=== PATIENT | female | born 1980 | race Caucasian/White ===

== ENCOUNTER 2024-02-21 12:41 | Observation (INO) | payer SELFPAY ==
[2024-02-21] VITALS (9 sets, daily range): BP systolic 86–127; BP diastolic 46–72; PULSE 57–60; RESP 16–18; TEMP 36.4–36.7; O2SAT 98–100; BMI 21.1
--- NOTE | 2024-02-21 12:43 | ED_ITS ---
Discharge Plan Disposition Patient Disposition: Admitted Clinical Impressions Clinical Impression: Pancreatitis, acute Discharge ED Provider: Christopher Giron General Adult HPI General Chief complaint: Abdominal Pain Stated complaint: Abd pain, blood in stool Time Seen by Provider: 02/21/24 12:58 History of Present Illness HPI narrative: Unique Rios is a 43F with a history of marijuana use, hysterectomy, who presents to the emergency department for complaints of severe cramping abdominal pain as well as blood in her stool. Patient states that starting at 0300 this morning, she was awoken from sleep and had an episode of nonbloody diarrhea. She has had severe cramping lower abdominal pain since then. She is also had multiple episodes of loose, watery diarrhea since then and her abdominal pain is gotten worse. She reports a few streaks of bright red blood in her stools. She states that this is never happened before. She denies any alcohol use or additional recreational drug use. She does state that she vapes. She denies any vomiting or nausea. Related Data Allergies Allergy/AdvReac Type Severity Reaction Status Date / Time codeine Allergy Hives Verified 02/21/24 13:10 [facility] Disclaimer: The information contained in this section may have been updated after the patient was seen, as this information can be updated by other users. Social History Smoking Status: Current every day smoker alcohol intake: never current occupational status: other details: unknown Travel in the last 8 weeks: None ROS Obtained: Yes Systems reviewed as appropriate & no additional complaints except as documented Physical Exam General General appearance: alert Comment: Appears uncomfortable Head Head exam: atraumatic Eye Eye exam: Present normal appearance ENT ENT exam: Present normal external ear exam Neck Neck exam: Present full ROM Chest Chest inspection: Present symmetric chest wall rise Respiratory Respiratory exam: Present normal lung sounds bilaterally; Absent respiratory distress, wheezes or stridor Cardiovascular Cardiovascular exam: Present regular rate and normal rhythm Abdominal Exam Abdominal exam: Present soft, tenderness (epigastric) and guarding (epigastric); Absent distention or rigidity Abdominal tenderness: Present epigastrium Extremities Exam Extremities exam: Present normal inspection Back Exam Back exam: Present normal inspection Neurological Exam Neurological exam: Present alert and oriented X3 Psychiatric Psychiatric exam: Present normal affect Skin Skin exam: Present warm and dry Medical Decision Making Medical Records Medical records reviewed: Yes I reviewed the patient's medical records. Shahzad Inquiry Pt receiving controlled substance: No Vital Signs: 02/21/24 12:59 02/21/24 13:30 02/21/24 14:00 Temperature 97.8 F Temperature Source Oral Pulse Rate 59 L 60 Pulse Rate [Left] 58 L Respiratory Rate 18 Blood Pressure 103/56 L 86/55 L Blood Pressure [Right Arm] 100/64 L Blood Pressure Mean 71 61 Blood Pressure Mean [Right Arm] 76 Blood Pressure Source [Right Arm] Automatic Cuff Blood Pressure Position [Right Arm] Sitting 02 Sat by Pulse Oximetry 98 100 100 Oxygen Delivery Method Room Air Room Air Room Air 02/21/24 14:30 Temperature Temperature Source Pulse Rate 60 Pulse Rate [Left] Respiratory Rate Blood Pressure 96/59 L Blood Pressure [Right Arm] Blood Pressure Mean 68 Blood Pressure Mean [Right Arm] Blood Pressure Source [Right Arm] Blood Pressure Position [Right Arm] 02 Sat by Pulse Oximetry 100 Oxygen Delivery Method Room Air Lab Data Lab Results 02/21/24 12:51: Urine Color Yellow, Urine Appearance Clear, Urine pH 6.5, Ur Specific [place] 1.025, Urine Protein Negative, Urine Glucose (UA) Negative, Urine Ketones Negative, Urine Blood Negative, Urine Nitrate Positive, Urine Bilirubin Negative, Urine Urobilinogen 0.2, Ur Leukocyte Esterase Negative, Urine RBC 3-5, Urine WBC Occasional, Ur Squamous Epith Cells 5-10, Urine Bacteria 3+ 02/21/24 12:56: WBC 4.5 L, RBC 4.51, Hgb 13.8, Hct 43.5, MCV 96.3, MCH 30.6, M CHC 31.7 L, RDW 13.2, Plt Count 214, MPV 7.7, Neut % (Auto) 74.8, Lymph % (Auto) 18.1, [place] % (Auto) 5.8, Eos % (Auto) 0.9, Baso % (Auto) 0.5, Neut # (Auto) 3.4, Lymph # (Auto) 0.8, [place] # (Auto) 0.3, Eos # (Auto) 0.0, Baso # (Auto) 0.0, Sodium 137, Potassium 4.0, Chloride 106, Carbon Dioxide 27, Anion Gap 8.0, BUN 16, Creatinine 0.80, Estimated Creat Clear 72, Estimated GFR 79, Est GFR ( Amer) 96, Glucose 100, Calcium 9.0, Total Bilirubin 0.7, AST 38 H, ALT 22, Alkaline Phosphatase 58, Total Protein 7.3, Albumin 4.5, Globulin 2.8, Albumin/Globulin Ratio 1.6, Triglycerides 49, Lipase 673 H, Serum HCG, Qual Negative 02/21/24 12:56 02/21/24 12:56 Orders (Tests/Meds): ED MEDICATIONS Generic Name Dose Route Start Last Admin Trade Name Derrell PRN Reason Stop Dose Admin Hydrocodone Bitart/Acetaminophen 1 tab 02/21/24 14:58 Hydrocodone/Apap 5/325 Mg Tablet PO 03/22/24 14:57 Q4HP PRN Moderate to Severe Pain (4-10) Ceftriaxone Sodium 1 gm/ 50 mls @ 100 mls/hr 02/21/24 15:00 Sodium Chloride IV 03/02/24 14:59 Q24H CHANG Lactated Ringer's 1,000 mls @ 100 mls/hr 02/21/24 15:00 Lactated Ringer's 1000 Ml Bag IV 02/22/24 00:59 .Q10H CHANG Sodium Chloride 10 ml 02/21/24 13:23 02/21/24 13:23 Sodium Chloride 0.9% 10ml Syr (Rad Only) IV 03/22/24 13:22 10 ml NEEDED PRN Administration Maintain IV Site Discontinued Medications Generic Name Dose Route Start Last Admin Trade Name Derrell PRN Reason Stop Dose Admin Lactated Ringer's 1,000 mls @ 999 mls/hr 02/21/24 13:27 02/21/24 13:33 Lactated Ringer's 1000 Ml Bag IV 02/21/24 14:27 999 mls/hr .Q1H1M ONE Administration Iopamidol 75 ml 02/21/24 13:23 02/21/24 13:23 Iopamidol-370 (76%);100ml Bottle IV 02/21/24 13:24 75 ml ONCE ONE Administration Morphine Sulfate 4 mg 02/21/24 13:05 02/21/24 13:11 Morphine 4mg/Ml Syringe IV 02/21/24 13:06 4 mg ONCE ONE Administration ORDERS Category Date Time Status CT abdomen pelvis w con Stat Cat Scan 02/21/24 13:05 Completed US RUQ [US abdomen limited] Stat Exams 02/21/24 15:05 Taken CBC w/Auto Diff [Complete Blood Count Auto Diff] Stat Lab 02/21/24 12:56 Completed CMP [Comprehensive Metabolic Panel] Stat Lab 02/21/24 12:56 Completed Complete Blood Count Auto Diff AMLAB Lab 02/22/24 06:00 Ordered Comprehensive Metabolic Panel AMLAB Lab 02/22/24 06:00 Ordered Lipase AMLAB Lab 02/22/24 06:00 Ordered Lipase Stat Lab 02/21/24 12:56 Completed Magnesium AMLAB Lab 02/22/24 06:00 Ordered Serum [HCG Qualitative, Serum] Stat Lab 02/21/24 12:56 Completed Triglycerides Stat Lab 02/21/24 12:56 Completed Urinalysis and Microscopic Stat Lab 02/21/24 12:51 Completed Urine Culture Stat Micro 02/21/24 12:51 Received Medical Decision Narrative: Unique Rios is a 43F with a past medical history of marijuana use but no other significant past medical history who presents to the emergency department for complaints of abdominal pain and bloody stools. Patient states that she woke up at 0300 this morning with bloody stools and severe cramping abdominal pain. She states that it feels most prominent below her bellybutton. No dysuria or hematuria. She noted a few streaks of blood in her diarrhea this morning. She denies any history of alcohol use. She has had a history of a hysterectomy and C-sections in the past. Physical exam demonstrated an ill-appearing female with epigastric and suprapubic abdominal tenderness. She is nondistended. She has no rigidity on abdominal exam. Differential diagnosis includes: Pancreatitis, urinary tract infection, small bowel obstruction, diverticulitis, peptic ulcer disease, hemorrhoids, infectious colitis, inflammatory bowel disease. Workup in the emergency department included: CBC, CMP, lipase, test, urinalysis, CT abdomen pelvis with IV contrast. The patient was treated with 4 mg of IV morphine for pain and 1 L lactated ringer Laboratory studies demonstrated no leukocytosis, mild elevation in AST of 38 but liver enzymes otherwise within normal limits. Lipase significantly elevated at 673 consistent with pancreatitis. Urine with 3+ bacteria but 3-5 red blood cells, occasional white blood cells and nitrite positive. Will treat with 1g IV Rocephin. CT abdomen pelvis with IV contrast was interpreted by me personally prior to official radiology reads. There does not appear to be any peripancreatic fat stranding or abscess formation, there may be a small cyst on the pancreatic neck. No obvious choledocholithiasis or gallbladder pathology. Final radiology reads state no acute intraabdominal pathology. Given her pancreatitis without an obvious source, will add triglyceride levels at this time. Discussed the case with the hospitalist, Dr. Olivarze, who agreed to admit the patient. On reassessment, patient stated that her pain was better controlled at this time, however it is felt that she would benefit from admission for continued workup and management and she was amenable to this plan. She was then admitted to the hospital. Critical Care Critical Care Time Critical Care Time: No
--- NOTE | 2024-02-21 13:01 | PC.NURSE ---
Dr. Giron at BS for pt eval
--- NOTE | 2024-02-21 13:05 | CT_ITS ---
FINAL REPORT TECHNIQUE: After the administration of intravenous contrast, axial images were obtained through the abdomen and pelvis by computed tomography. The study was performed with techniques to keep radiation dose as low as reasonably achievable, (ALARA). Individual dose reduction techniques using automated exposure control or adjustment of mA and/or kV according to the patient's size were employed. CLINICAL HISTORY: suprapubic pain, hematochezia COMPARISON: None FINDINGS: Abdomen: The lung bases are clear. The liver parenchyma is homogeneous. The gallbladder is contracted. The spleen, pancreas, adrenals and kidneys appear unremarkable. The aorta is normal in caliber. There is no localized inflammatory reaction or fluid collection. Pelvis: The appendix is unremarkable. The urinary bladder is incompletely distended. No free fluid or adenopathy. IMPRESSION: No acute intra-abdominal process. Reviewed, Interpreted and Dictated by Stewart Sarabia MD Transcribed by Jocy Mahoney Authenticated and [facility]
[2024-02-21] MEDS: MORPHINE 4MG/ML SYRINGE 4 MG IV (13:11)
[2024-02-21 13:13] LABS: Microscopic, Urine URINE MICROSCOPIC (MICROSCOPIC)
[2024-02-21 13:18] LABS: Basophils % 0.5 % (0.1-2.0); Eosinophils % 0.9 % (0.1-12.0); Hematocrit 43.5 % (37.0-47.0); Hemoglobin 13.8 g/dL (12.2-16.2); Lymphocytes # 0.8 K/mm3 (0.7-4.5); Lymphocytes % 18.1 % (10-50); Mean Corpuscular HGB Conc 31.7 g/dL (31.8-35.4); Mean Corpuscular Hemoglobin 30.6 pg (27.0-31.2); Mean Corpuscular Volume 96.3 fl (81-99); Mean Platelet Volume 7.7 fl (7.4-10.4); Monocytes # 0.3 K/mm3 (0.1-1.0); Monocytes % 5.8 % (1.7-9.3); Neutrophils # 3.4 K/mm3 (1.8-7.8); Neutrophils % 74.8 % (37.0-80.0); Platelet Count 214 K/mm3 (142-424); Red Blood Count 4.51 M/mm3 (4.20-5.40); Red Cell Distribution Width 13.2 % (11.5-17.5); White Blood Count 4.5 K/mm3 (4.8-10.8)
[2024-02-21 13:20] LABS: Albumin Level 4.5 g/dl (3.5-5.0); Chloride 106 mmol/L (98-107); Sodium 137 mmol/L (136-145)
[2024-02-21 13:23] LABS: Alanine Aminotransferase 22 U/L (12-78); Albumin/Globulin Ratio 1.6 (1.1-1.8); Alkaline Phosphatase 58 U/L (38-126); Aspartate Amino Transferase 38 U/L (14-36); Bilirubin,Total 0.7 mg/dl (0.2-1.3); Blood Urea Nitrogen 16 mg/dl (7-17); Carbon Dioxide 27 mmol/L (22.0-30.0); Creatinine Clearance Estimated 72 mL/min (50-200); Estimated Glomerular Filt Rate 79 ml/min (>60); GFR (African American) 96 ML/MIN (>60); Globulin 2.8 g/dL (1.3-3.2); Total Protein,Serum 7.3 g/dl (6.3-8.2)
[2024-02-21] MEDS: SODIUM CHLORIDE 0.9% 10ML SYR (RAD ONLY) 10 ML IV (13:23)
[2024-02-21] MEDS: IOPAMIDOL-370 (76%);100ML BOTTLE 75 ML IV (13:23)
[2024-02-21 13:24] LABS: Glucose 100 mg/dl (74-100); Lipase 673 U/L (23-300)
[2024-02-21 13:26] LABS: HCG Qualitative, Serum Negative (Negative)
[2024-02-21] MEDS: LACTATED RINGERS 1000ML 1,000 ML 999 ML IV (13:33)
[2024-02-21 13:34] LABS: Appearance,Urine CLEAR (Clear); Bilirubin,Urine Negative (Negative); Blood, Urine Negative (Negative); Color,Urine YELLOW (Yellow); Glucose,Urine (UA) Negative (Negative); Ketones,Urine Negative (Negative); Leukocyte Esterase,Urine Negative (Negative); Nitrate,Urine POSITIVE (Negative); PH,Urine 6.5 (5.0-8.5); Protein,Urine Negative (Negative); Specific Gravity, Urine 1.025 (1.005-1.030); Urobilinogen,Urine 0.2 EU/dl (0.2)
[2024-02-21 13:42] LABS: WBC,Urine Occasional #/hpf (0-3)
[2024-02-21 13:43] LABS: Bacteria,Urine 3+ /lpf
--- NOTE | 2024-02-21 14:56 | PC.NURSE ---
ON PHONE WITH HOSPITALIST
--- NOTE | 2024-02-21 15:04 | EXP.HP ---
History of Present Illness *Admission Date: 02/21/24 *Reason for visit:: Diarrhea, abdominal cramping *History of present illness: Ms. Rios is a 43-year-old female nondrinker, former smoker, quit smoking a year ago. History of hysterectomy. On estradiol therapy. Presented with acute onset of abdominal pain and cramping this morning about 3 AM. Had 2 bowel movements that were loose this morning. Third episode had blood with blood on toilet paper. Denies any nausea or vomiting. Having significant abdominal cramping on arrival to the ER. Due to her discomfort, came for evaluation. CT obtained in the ER was relatively benign. Labs concerning however for elevated lipase of 673. Given findings on exam and metabolic abnormalities, medicine was consulted for admission and treatment of pancreatitis. Urine obtained as well showing concern for UTI with nitrate and bacteria positive. Started on ceftriaxone. Received a liter of LR in the ER. Patient denies chest pain, shortness of breath, confusion, rash, fever or chills. [facility] Disclaimer: The information contained in this section may have been updated after the patient was seen, as this information can be updated by other users. Surgical History Previous section Hx of tonsillectomy History of tubal ligation H/O: hysterectomy Family History Grandmother Lung cancer Mother Hypertension Unknown Gestational diabetes Social History Smoking Status: Current every day smoker alcohol intake: never current occupational status: employed and other details: unknown Travel in the last 8 weeks: None Review of Systems Review of Systems Review of systems (narrative): 14 point review of systems performed, pertinent positives and negatives as per HPI Meds Home Medications and Allergies New Prescriptions to Start Prescriptions: Allergies Allergy/AdvReac Type Severity Reaction Status Date / Time codeine Allergy Hives Verified 02/21/24 13:10 Exam Data for Last 24 hours Vital signs and Labs for Last 24 Hours: Temp Pulse Resp BP Pulse Ox O2 Del Method 97.8 F 60 18 86/55 L 100 Room Air 02/21/24 12:59 02/21/24 14:00 02/21/24 12:59 02/21/24 14:00 02/21/24 14:00 02/21/24 14:00 Laboratory Results - last 24 hr 02/21/24 12:51: Urine Color Yellow, Urine Appearance Clear, Urine pH 6.5, Ur Specific [place] 1.025, Urine Protein Negative, Urine Glucose (UA) Negative, Urine Ketones Negative, Urine Blood Negative, Urine Nitrate Positive, Urine Bilirubin Negative, Urine Urobilinogen 0.2, Ur Leukocyte Esterase Negative, Urine RBC 3-5, Urine WBC Occasional, Ur Squamous Epith Cells 5-10, Urine Bacteria 3+ 02/21/24 12:56: WBC 4.5 L, RBC 4.51, Hgb 13.8, Hct 43.5, MCV 96.3, MCH 30.6, MCHC 31.7 L, RDW 13.2, Plt Count 214, MPV 7.7, Neut % (Auto) 74.8, Lymph % (Auto) 18.1, [place] % (Auto) 5.8, Eos % (Auto) 0.9, Baso % (Auto) 0.5, Neut # (Auto) 3.4, Lymph # (Auto) 0.8, [place] # (Auto) 0.3, Eos # (Auto) 0.0, Baso # (Auto) 0.0, Sodium 137, Potassium 4.0, Chloride 106, Carbon Dioxide 27, Anion Gap 8.0, BUN 16, Creatinine 0.80, Estimated Creat Clear 72, Estimated GFR 79, Est GFR ( Amer) 96, Glucose 100, Calcium 9.0, Total Bilirubin 0.7, AST 38 H, ALT 22, Alkaline Phosphatase 58, Total Protein 7.3, Albumin 4.5, Globulin 2.8, Albumin/Globulin Ratio 1.6, Lipase 673 H, Serum HCG, Qual Negative I & O for Last 24 hours: Intake & Output 02/18/24 02/19/24 02/20/24 02/21/24 23:59 23:59 23:59 23:59 Weight 48.988 kg Constitutional Constitutional: mild distress, thin and cooperative *Routine HEENT Exam Head: Present normocephalic Eye: Present EOMI and PERRL ENT: Present mucous membranes moist Comments: edentulous *Routine Neck Exam Neck: Present supple; Absent lymphadenopathy *Routine Respiratory Exam Respiratory: Present CTA bilaterally; Absent respiratory distress, rhonchi, wheezes or crackles *Routine Cardiovascular Exam Cardiovascular: Present RRR *Routine Abdominal Exam Abdominal: Present soft, normoactive bowel sounds, tenderness (Left upper quadrant, suprapubic most tender) and guarding; Absent distended or rebound *Routine Rectal Exam Rectal:: deferred *Routine Genitalia Exam Genitalia:: deferred *Routine Extremities Exam Extremities: Absent cyanosis, clubbing or edema *Routine Skin Exam Skin: Present intact and warm; Absent rash *Routine Neurological Exam Neurological: Present alert, oriented X3 and moving all extremities; Absent altered mental status Assessment and Plan *Assessment and plan (1) Pancreatitis, acute: Status: Acute Category: Medical Code(s): K85.90 - Acute pancreatitis without necrosis or infection, unspecified (2) Diarrhea: Status: Acute Category: Medical Code(s): R19.7 - Diarrhea, unspecified (3) UTI (urinary tract infection): Status: Acute Category: Medical Code(s): N39.0 - Urinary tract infection, site not specified Plan 43-year-old female with history of hysterectomy. On estrogen replacement therapy. Presented with acute onset of abdominal cramping and diarrhea today. No nausea or vomiting. Discussed case with ER physician, request admission because of elevated lipase concerning for pancreatitis and abnormal urine consistent with UTI. I agreed to admit for further management. Problems addressed as follows: Pancreatitis -Lipase elevated at 673, has abdominal pain in left upper quadrant on exam. -Per my review of CT, pancreas unremarkable. No signs of obstruction. Per my review of ultrasound, common bile duct normal for age 0.4 cm. No significant stone burden in gallbladder. -Patient stating she is hungry, will trial clear liquid diet. -Hydrocodone 5 mg as needed every 4 hours for moderate to severe pain. Will administer 1 more liter of LR at 100 cc/h. -Repeat lipase for the morning. Repeat CBC, CMP, magnesium for the morning - White count normal at 4.5, hemoglobin 13.8. Kidney function normal with BUN 16, creatinine 0.8. Liver function normal with bili 0.7, AST 38, ALT 22. Alkaline phos is normal at 58. Triglycerides unremarkable at 49. UTI -Urine grossly abnormal with nitrate positive, 3+ bacteria. Administer ceftriaxone 1 g x 1, urine culture pending. Diarrhea: Diarrhea panel pending. Full code Ambulatory, no indication for VTE Clear liquid diet
--- NOTE | 2024-02-21 15:05 | US_ITS ---
FINAL REPORT CLINICAL HISTORY: pancreatitis, eval gallbladder and liver FINDINGS: ULTRASOUND RIGHT UPPER QUADRANT Sonographic imaging of the right upper quadrant was obtained. The pancreas is partially obscured. The liver is unremarkable. There may be a tiny amount of sludge in the gallbladder. There is no evidence of gallstones. There is no gallbladder wall thickening. There is no biliary ductal dilatation. The common duct is normal at 4 mm. Limited images of the right kidney are unremarkable. IMPRESSION: Possible small amount of sludge in the gallbladder. Otherwise, unremarkable exam. Reviewed, Interpreted and Dictated by Stewart Sarabia MD Transcribed by Amada aRm Authenticated and [facility]
[2024-02-21 15:20] LABS: Triglycerides 49 mg/dl (30-150)
--- NOTE | 2024-02-21 15:24 | PC.NURSE ---
pt is at ultrasound
--- NOTE | 2024-02-21 15:38 | PC.NURSE ---
Report called to ZAHEER Harrison on Med Surg.
--- NOTE | 2024-02-21 15:42 | PC.NURSE ---
arrived by wheelchair from ed.
[2024-02-21] MEDS: LACTATED RINGERS 1000ML 1,000 ML 100 ML IV (16:54)
[2024-02-21] MEDS: CEFTRIAXONE 1 GM 1 GM in 0.9 % SODIUM CHLORIDE 50 ML IV (16:54)
--- NOTE | 2024-02-21 17:19 | PC.NURSE ---
during admission assessment pt stated that she only took 1 medication daily and that was estradiol. Pt states that she last took the medication this morining. when asked the strength of the medication pt was stated she is unsure. either 1mg or 2 mg . when asked what pharmacy was used, she stated that she had just moved down here from [place] and did not know the name of the pharmacy. when pt was asked about meds again at the end of the admission, she stated that she thinks she uses [facility] in [place]. Pt pharmacy in [place] was contacted to obtain the strength of the medication. Staff at [facility] state Estradiol was last filled with them in March of 2023 and the strength of the medication is 1mg.
--- NOTE | 2024-02-21 17:33 | PC.NURSE ---
Addendum entered by Maite Roman RN 02/21/24 18:46: upon final rounds of the shift, pt pain was assessed. pt stated that her pain did not increase/worsen after eating solid food. pain remained 5-6/10 and requested pain meds at this time. diet increased per Dr Olivarez previous direction. Addendum entered by Maite Roman RN 02/21/24 18:11: pt reassessed after meal from [employer]. pt denies any pain/increase in pain or n/v at this time. Original Note: upon entering pt room for rounds, it was noted that pt was eating food from [employer]. pt was reminded that she was on a clear liquid diet. pt stated she thought the MD said she could have food and took that to mean what she wanted to eat. Contacted Md and advised of pt eating meal from [email or web address]. MD states to monitor pt for any increase in abd pain or N/V. and if pt is able to tolerate solid food to increase her diet to low fat diet. pt was notified of change in diet and to inform staff of any increase in pain or n/v.
[2024-02-21] MEDS: HYDROCODONE/APAP 5/325 MG TABLET 1 TAB PO (18:41)
[2024-02-22] MEDS: ONDANSETRON 4MG/2ML VIAL 4 MG IV (00:28)
[2024-02-22 04:00] VITALS: BP 91/43; PULSE 55; RESP 16; TEMP 36.9; O2SAT 97; BMI 20.2
[2024-02-22] MEDS: HYDROCODONE/APAP 5/325 MG TABLET 1 TAB PO (06:35)
--- NOTE | 2024-02-22 06:43 | PC.NURSE ---
Pt has rested comfortably most of the shift. She was medicated for pain and also nausea. She reported having a headache this am, described as migraine . Specimen sent to lab as stool sample but appeared more to be blood tinged mucus rather than stool. She has been up to BR to void without assist.
[2024-02-22 06:52] LABS: Basophils % 0.4 % (0.1-2.0); Eosinophils # 0.1 K/mm3 (0.0-0.4); Eosinophils % 2.4 % (0.1-12.0); Hematocrit 37.3 % (37.0-47.0); Lymphocytes % 32.5 % (10-50); Mean Corpuscular HGB Conc 31.2 g/dL (31.8-35.4); Mean Corpuscular Hemoglobin 29.9 pg (27.0-31.2); Mean Corpuscular Volume 95.7 fl (81-99); Monocytes # 0.2 K/mm3 (0.1-1.0); Monocytes % 6.6 % (1.7-9.3); Neutrophils # 1.8 K/mm3 (1.8-7.8); Platelet Count 174 K/mm3 (142-424); Red Blood Count 3.89 M/mm3 (4.20-5.40); Red Cell Distribution Width 13.5 % (11.5-17.5); White Blood Count 3.2 K/mm3 (4.8-10.8)
[2024-02-22 07:01] LABS: Albumin Level 3.2 g/dl (3.5-5.0); Chloride 108 mmol/L (98-107); Hemoglobin 11.7 g/dL (12.2-16.2); Potassium 3.5 mmoL/L (3.5-5.1); Sodium 137 mmol/L (136-145)
[2024-02-22 07:03] LABS: Alanine Aminotransferase 16 U/L (12-78); Aspartate Amino Transferase 29 U/L (14-36); Blood Urea Nitrogen 10 mg/dl (7-17); Creatinine Clearance Estimated 78 mL/min (50-200); Estimated Glomerular Filt Rate 92 ml/min (>60); GFR (African American) 112 ML/MIN (>60)
[2024-02-22 07:04] LABS: Albumin/Globulin Ratio 1.5 (1.1-1.8); Alkaline Phosphatase 48 U/L (38-126); Anion Gap 4.5 mEq/L (5-15); Bilirubin,Total 0.6 mg/dl (0.2-1.3); Calcium 7.9 mg/dl (8.4-10.2); Carbon Dioxide 28 mmol/L (22.0-30.0); Globulin 2.1 g/dL (1.3-3.2); Glucose 85 mg/dl (74-100); Magnesium 1.8 mg/dl (1.6-2.3); Total Protein,Serum 5.3 g/dl (6.3-8.2)
[2024-02-22 07:09] LABS: Lipase 709 U/L (23-300)
[2024-02-22 08:00] VITALS: BP 100/59; PULSE 52; RESP 16; TEMP 36.7; O2SAT 92
--- NOTE | 2024-02-22 08:33 | HMH.PHAINT1 ---
Pharmacy Intervention Comments: MEDICATION RECONCILIATION COMPLETED ON PATIENT VIA CALL TO PATIENT'S PHARMACY (SEE NURSING NOTE). -IQRA ARMAS, VIOLAD
--- NOTE | 2024-02-22 09:08 | EXP.DC.SUM ---
General Admission date:: 02/21/24 Discharge date: 02/22/24 HPI HPI HPI: Ms. Rios is a 43-year-old female nondrinker, former smoker, quit smoking a year ago. History of hysterectomy. On estradiol therapy. Presented with acute onset of abdominal pain and cramping this morning about 3 AM. Had 2 bowel movements that were loose this morning. Third episode had blood with blood on toilet paper. Denies any nausea or vomiting. Having significant abdominal cramping on arrival to the ER. Due to her discomfort, came for evaluation. CT obtained in the ER was relatively benign. Labs concerning however for elevated lipase of 673. Given findings on exam and metabolic abnormalities, medicine was consulted for admission and treatment of pancreatitis. Urine obtained as well showing concern for UTI with nitrate and bacteria positive. Started on ceftriaxone. Received a liter of LR in the ER. Patient denies chest pain, shortness of breath, confusion, rash, fever or chills. Hospital Course Hospital Course Hospital Course: 43-year-old female with history of hysterectomy. On estrogen replacement therapy. Presented with acute onset of abdominal cramping and diarrhea today. No nausea or vomiting. Discussed case with ER physician, request admission because of elevated lipase concerning for pancreatitis and abnormal urine consistent with UTI. I agreed to admit for further management. Began eating the night of admission after her brought her [employer]. Tolerated it with no increase in abdominal pain. No nausea or vomiting. Overall doing better. Seeing improvement clinically. Given her tolerance of p.o. intake without worsening pain and stable labs, will plan to discharge home for conservative management as an outpatient. Problems addressed as follows: Pancreatitis -Lipase elevated at 673, abdominal pain on admission. Repeat lipase following morning of 700. Tolerating regular diet with no significant increase in pain. Having bowel movements. CT of abdomen showed no acute findings. Pancreas appeared normal. Gallbladder normal with questionable sludge. No dilation of common bile duct. Continue hydrocodone as needed for severe breakthrough pain. Advance to regular diet at home. White count remain normal in light of her clinical stability, will discharge home. Recommend follow-up with PCP. UTI: Urine grossly abnormal with nitrate positive, 3+ bacteria. Initiated on ceftriaxone. Urine showing gram-negative rods. Will transition to cefdinir 300 mg twice daily to complete 7 days of therapy. Exam Data for Last 24 hours Vital signs and Labs for Last 24 Hours: Temp Pulse Resp BP Pulse Ox O2 Del Method 98.1 F 52 L 16 100/59 L 92 L Room Air 02/22/24 08:00 02/22/24 08:00 02/22/24 08:00 02/22/24 08:00 02/22/24 08:00 02/22/24 08:00 Laboratory Results - last 24 hr 02/21/24 12:51: Urine Color Yellow, Urine Appearance Clear, Urine pH 6.5, Ur Specific [place] 1.025, Urine Protein Negative, Urine Glucose (UA) Negative, Urine Ketones Negative, Urine Blood Negative, Urine Nitrate Positive, Urine Bilirubin Negative, Urine Urobilinogen 0.2, Ur Leukocyte Esterase Negative, Urine RBC 3-5, Urine WBC Occasional, Ur Squamous Epith Cells 5-10, Urine Bacteria 3+ 02/21/24 12:56: WBC 4.5 L, RBC 4.51, Hgb 13.8, Hct 43.5, MCV 96.3, MCH 30.6, MCHC 31.7 L, RDW 13.2, Plt Count 214, MPV 7.7, Neut % (Auto) 74.8, Lymph % (Auto) 18.1, [place] % (Auto) 5.8, Eos % (Auto) 0.9, Baso % (Auto) 0.5, Neut # (Auto) 3.4, Lymph # (Auto) 0.8, [place] # (Auto) 0.3, Eos # (Auto) 0.0, Baso # (Auto) 0.0, Sodium 137, Potassium 4.0, Chloride 106, Carbon Dioxide 27, Anion Gap 8.0, BUN 16, Creatinine 0.80, Estimated Creat Clear 72, Estimated GFR 79, Est GFR ( Amer) 96, Glucose 100, Calcium 9.0, Total Bilirubin 0.7, AST 38 H, ALT 22, Alkaline Phosphatase 58, Total Protein 7.3, Albumin 4.5, Globulin 2.8, Albumin/Globulin Ratio 1.6, Triglycerides 49, Lipase 673 H, Serum HCG, Qual Negative 02/22/24 06:29: WBC 3.2 L D, RBC 3.89 L, Hgb 11.7 L D, Hct 37.3, MCV 95.7, MCH 29.9, MCHC 31.2 L, RDW 13.5, Plt Count 174, MPV 8.0, Neut % (Auto) 58.0, Lymph % (Auto) 32.5, [place] % (Auto) 6.6, Eos % (Auto) 2.4, Baso % (Auto) 0.4, Neut # (Auto) 1.8, Lymph # (Auto) 1.0, [place] # (Auto) 0.2, Eos # (Auto) 0.1, Baso # (Auto) 0.0, Sodium 137, Potassium 3.5, Chloride 108 H, Carbon Dioxide 28, Anion Gap 4.5 L, BUN 10 D, Creatinine 0.70, Estimated Creat Clear 78, Estimated GFR 92, Est GFR ( Amer) 112, Glucose 85, Calcium 7.9 L, Magnesium 1.8, Total Bilirubin 0.6, AST 29, ALT 16 D, Alkaline Phosphatase 48, Total Protein 5.3 L D, Albumin 3.2 L D, Globulin 2.1, Albumin/Globulin Ratio 1.5, Lipase 709 H I & O for Last 24 hours: Intake & Output 02/19/24 02/20/24 02/21/24 02/22/24 23:59 23:59 23:59 23:59 Intake Total 290 / 290 760 / 760 Output Total 200 / 200 Balance 90 / 90 760 / 760 Weight 48.988 kg 46.72 kg Microbiology Reports for the Last 24 Hours: Microbiology 02/21/24 12:51 Urine,Clean Catch Urine Culture - Preliminary Gram Negative Rods Constitutional Constitutional: no acute distress, average body habitus, chronically ill appearing and cooperative *Routine HEENT Exam Head: Present normocephalic Eye: Present EOMI and PERRL ENT: Present mucous membranes moist *Routine Neck Exam Neck: Present supple; Absent lymphadenopathy *Routine Respiratory Exam Respiratory: Present CTA bilaterally; Absent rhonchi, wheezes or crackles *Routine Cardiovascular Exam Cardiovascular: Present RRR *Routine Abdominal Exam Abdominal: Present soft, normoactive bowel sounds and tenderness (Minor left upper abdomen. Improved.) *Routine Rectal Exam Patient deferred: visual exam *Routine Exam Patient deferred: external exam *Routine Extremities Exam Extremities: Absent cyanosis, clubbing or edema *Routine Skin Exam Skin: Present warm; Absent rash *Routine Neurological Exam Neurological: Present alert, oriented X3 and moving all extremities; Absent altered mental status Results Data Completed and Pending Labs on day of discharge: Labs from last 24 hours 02/22/24 02/21/24 02/21/24 06:29 12:56 12:51 WBC 3.2 L D 4.5 L RBC 3.89 L 4.51 Hgb 11.7 L D 13.8 Hct 37.3 43.5 MCV 95.7 96.3 MCH 29.9 30.6 MCHC 31.2 L 31.7 L RDW 13.5 13.2 Plt Count 174 214 MPV 8.0 7.7 Neut % (Auto) 58.0 74.8 Lymph % (Auto) 32.5 18.1 [place] % (Auto) 6.6 5.8 Eos % (Auto) 2.4 0.9 Baso % (Auto) 0.4 0.5 Neut # (Auto) 1.8 3.4 Lymph # (Auto) 1.0 0.8 [place] # (Auto) 0.2 0.3 Eos # (Auto) 0.1 0.0 Baso # (Auto) 0.0 0.0 Sodium 137 137 Potassium 3.5 4.0 Chloride 108 H 106 Carbon Dioxide 28 27 Anion Gap 4.5 L 8.0 BUN 10 D 16 Creatinine 0.70 0.80 Estimated Creat Clear 78 72 Estimated GFR 92 79 Est GFR ( Amer) 112 96 Glucose 85 100 Calcium 7.9 L 9.0 Magnesium 1.8 Total Bilirubin 0.6 0.7 AST 29 38 H ALT 16 D 22 Alkaline Phosphatase 48 58 Total Protein 5.3 L D 7.3 Albumin 3.2 L D 4.5 Globulin 2.1 2.8 Albumin/Globulin Ratio 1.5 1.6 Triglycerides 49 Lipase 709 H 673 H Serum HCG, Qual Negative Urine Color Yellow Urine Appearance Clear Urine pH 6.5 Ur Specific [place] 1.025 Urine Protein Negative Urine Glucose (UA) Negative Urine Ketones Negative Urine Blood Negative Urine Nitrate Positive Urine Bilirubin Negative Urine Urobilinogen 0.2 Ur Leukocyte Esterase Negative Urine RBC 3-5 Urine WBC Occasional Ur Squamous Epith Cells 5-10 Urine Bacteria 3+ Preliminary micro results at discharge 02/21/24 12:51 Urine Culture - Preliminary Urine,Clean Catch Gram Negative Rods DS: Diagnosis Discharge Diagnosis (1) Pancreatitis, acute: Status: Acute Code(s): K85.90 - Acute pancreatitis without necrosis or infection, unspecified (2) Diarrhea: Status: Acute Code(s): R19.7 - Diarrhea, unspecified (3) UTI (urinary tract infection): Status: Acute Code(s): N39.0 - Urinary tract infection, site not specified Meds Home Medications and Allergies Home Medications ?Medication ?Instructions ?Recorded ?Confirmed ?Type cefdinir 300 mg capsule 300 mg PO BID 5 days #10 caps 02/22/24 Rx hydrocodone 5 mg-acetaminophen 325 1 tab PO Q6HP PRN Moderate To 02/22/24 Rx mg tablet Severe Pain (4-10) 3 days #11 tabs New Prescriptions to Start Prescriptions: cefdinir Cyril Olivarez hydrocodone-acetaminophen Cyril Olivarez Allergies Allergy/AdvReac Type Severity Reaction Status Date / Time codeine Allergy Hives Verified 02/21/24 13:10 Discharge Plan Disposition Patient Disposition: Home, Self-Care Condition: Fair Follow up Plan Prescriptions/Medication Reconciliation: New hydrocodone-acetaminophen 5-325 mg Tablet 1 tab PO Q6HP PRN (Reason: Moderate To Severe Pain (4-10)) 3 Days Qty: 11 0RF cefdinir 300 mg capsule 300 mg PO BID 5 Days Qty: 10 0RF Discontinued estradiol 1 mg Tablet 1 mg PO DAILY Rx Instructions: off 1 week; repeat cycle Problem Reconciliation Problems Reviewed?: Yes Patient Discharge Instructions ACTIVITY: Continue current activity DIET: continue same diet Stand Alone Forms: [facility] Work Release Patient Instructions: Pancreatitis (Alternative Therapy), Chronic Pancreatitis Print Language: Latvian Providers Primary Care Provider: Provider,Referral Admit Provider: Cyril Olivarez Attending Provider: Cyril Olivarez
== END 2024-02-22 10:15 | disposition home or self-care (01) ==
LOC: ER 13:51 → 2ND 15:45
PROVIDERS: Admitting Provider Internal Medicine Adolescent Medicine; Emergency Provider Student in an Organized Health Care Education/Training Program; Visit Provider Internal Medicine Adolescent Medicine
DX: K85.90 Acute pancreatitis without necrosis or infection, unspecified (principal); R19.7 Diarrhea, unspecified; N39.0 Urinary tract infection, site not specified; R74.8 Abnormal levels of other serum enzymes; Z09 Encounter for follow-up examination after completed treatment for conditions other than malignant neoplasm; Z87.891 Personal history of nicotine dependence
CPT/HCPCS: 36415; 74177; 76705; 80053; 81001; 83690; 83735; 84478; 84703; 85025; 87086; 87088; 87186; 99285; G0378; J0696; J2270; J2405; J7120; Q9967